=== PATIENT | female | born 1965 | race Caucasian/White ===

== ENCOUNTER 2017-03-29 17:30 | Emergency (ER) | payer OTHER | END 2017-03-29 18:55 | disposition home or self-care (01) | LOC: ER 17:30 | DX: S80.12XA Contusion of left lower leg, initial encounter (principal); R07.89 Other chest pain; E66.9 Obesity, unspecified; I10 Essential (primary) hypertension; Z85.850 Personal history of malignant neoplasm of thyroid; Z87.891 Personal history of nicotine dependence; Z79.899 Other long term (current) drug therapy; V49.9XXA Car occupant (driver) (passenger) injured in unspecified traffic accident, initial encounter ==